=== PATIENT | male | born 1995 | race Caucasian/White ===

== ENCOUNTER 2020-02-04 01:41 | Emergency (ER) | payer SELFPAY ==
[~2020-02-04] VITALS: Ht 188 cm; Wt 65.0 kg
[2020-02-04] MEDS ORDERED: SODIUM CHLORIDE FLUSH 10ML SYR IVF ONE ×2 (02:30→03:30)
--- NOTE | 2020-02-04 02:59 | NUR ---
PT TO ROOM FROM LOBBY
[2020-02-04] MEDS ORDERED: PROMETHAZINE 25 MG/ML, 1ML ONE (03:19)
[2020-02-04] MEDS ORDERED: ONDANSETRON 2MG/ML, 2ML ONE (03:19)
[2020-02-04] MEDS ORDERED: ONDANSETRON 2MG/ML, 2ML IVPush ONE (03:30)
[2020-02-04] MEDS ORDERED: PROMETHAZINE 25 MG/ML, 1ML IM ONE (03:30)
[2020-02-04] MEDS ORDERED: SODIUM CHLORIDE 0.9% 1,000ML IVBOLUS ONE ×2 (03:30→05:00)
[2020-02-04 03:38] LABS: BASOPHILS % (AUTO) 0 % (0-1); EOSINOPHILS % (AUTO) 0 % (1-7); LYMPHOCYTES % (AUTO) 5 % (22-44); MEAN CORPUSCULAR HEMOGLOBIN 31.7 pg (27.5-34.5); MEAN CORPUSCULAR HGB CONC 34.4 g/dL (33.2-36.2); MEAN PLATELET VOLUME 8.9 fL (7.4-10.4); MONOCYTES % (AUTO) 5 % (2-9); NEUTROPHILS % (AUTO) 90 % (42-75); PLATELET COUNT 281 x10^3/uL (130-400); RED BLOOD COUNT 5.18 x10^6/uL (4.38-5.82)
[2020-02-04 03:39] LABS: MD NO
--- NOTE | 2020-02-04 03:40 | NUR ---
PT STATES HAVING N/V FOR PAST "FEW HOURS". PT STATES DRINKING A COUPLE BEERS EARLIER AND SMOKING "A LITTLE BIT" OF MARIJUANA EARLIER TODAY. PT ON CONTINUOUS PULSE OK, IV PLACED, MEDICATED, LABS DRAWN
[2020-02-04 03:48] LABS: ALBUMIN 4.7 g/dL (3.4-5.0); ANION GAP 8 mmol/L (5-15); CALCIUM 9.3 mg/dL (8.5-10.1); CHLORIDE 106 mmol/L (98-107)
[2020-02-04 03:52] LABS: ALANINE AMINOTRANSFERASE 16 U/L (12-78); ALKALINE PHOSPHATASE 84 U/L (45-117); BILIRUBIN,TOTAL 1.7 mg/dL (0.2-1.0); CREATININE 1.27 mg/dL (0.7-1.3); TOTAL PROTEIN 8.2 g/dL (6.4-8.2)
[2020-02-04] MEDS ORDERED: OMNIPAQUE 350 MG/ML, 100ML BOTTLE ONE (04:15)
[2020-02-04] MEDS ORDERED: METOCLOPRAMIDE 5 MG/ML, 2ML ONE (04:57)
[2020-02-04] MEDS ORDERED: METOCLOPRAMIDE 5 MG/ML, 2ML IVPush ONE (05:00)
[2020-02-04 05:03] VITALS: BP 130/80
--- NOTE | 2020-02-04 05:05 | NUR ---
PT GIVEN MORE IV NAUSEA MEDICATION, PT STATES UNABLE TO DRINK CONTRAST AT THIS TIME, WILL REASSESS WHEN MEDICATION TAKES AFFECT
--- NOTE | 2020-02-04 05:16 | NUR ---
pt called this rn and is extremely restless in bed and is stating he cannot drink the contrast, and that he doesnt care anymore and wants to go home. this rn explained need to rule out possible life threatening diagnosis. pt then stated he really doesnt care and just wants to leave. this patient explained that this will be an ama and pt agreed. erp went in to talk with patient and patient still states he wants to leave. ama papers signed, d/c papers given
== END 2020-02-04 05:32 | disposition left against medical advice (07) ==
LOC: ED 05:21
DX: R11.2 Nausea with vomiting, unspecified (principal); R10.31 Right lower quadrant pain; D72.829 Elevated white blood cell count, unspecified; E86.0 Dehydration
CPT/HCPCS: 36415; 74177; 80053; 83690; 85025; 96361; 96372; 96374; 96375; 99285; J2405; J2550; J2765; J7030; Q9967